=== PATIENT | female | born 1950 | race Caucasian/White ===

== ENCOUNTER 2016-12-13 07:42 | Day surgery (SDC) | payer MEDICARE, OTHER ==
[2016-12-10 14:30] LABS: BASOPHILS 0.7 %; BASOPHILS ABSOLUTE 0.04 10/3/uL (0.0-0.16); EOSINOPHILS 1.2 %; EOSINOPHILS ABSOLUTE 0.07 10/3/uL (0.0-0.53); HEMOGLOBIN 11.6 g/dL (12.0-16.0); IMMATURE GRANULOCYTES 0.2 %; IMMATURE GRANULOCYTES ABSOLUTE 0.01 10/3/uL (0.0-0.11); LYMPHOCYTES 29.6 %; LYMPHOCYTES ABSOLUTE 1.71 10/3/uL (0.67-4.30); MEAN CORPUS HGB CONC 31.9 g/dL (32.0-36.0); MEAN PLATELET VOLUME 11.7 fL (9.2-13.0); MONOCYTES 7.8 %; MONOCYTES ABSOLUTE 0.45 10/3/uL (0.21-1.20); NEUTROPHILS 60.5 %; NEUTROPHILS ABSOLUTE 3.49 10/3/uL (2.02-8.40); PLATELET COUNT 229 10/3/uL (150-400); RBC DISTRIBUTION WIDTH 14.1 % (12.0-16.0); WHITE BLOOD CELLS 5.8 10/3/uL (4.5-10.5)
[2016-12-10 14:32] LABS: HEMATOCRIT 36.4 % (36.0-48.0); MANUAL DIFF NO %
[2016-12-10 14:37] LABS: PFA (COL/EPI) 115 SEC (72-180)
[2016-12-10 14:48] LABS: INTERNATIONAL NORMAL RATI 1.1 UNITS (-); PARTIAL THROMBO TIME 27.3 SEC (22.5-37.2); PROTIME (NOT ORD) 14.1 SEC (12.0-14.5)
--- NOTE | ~2016-12-13 | OP ---
Record Of Operation [facility] [address] [place]. 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 POSTOPERATIVE DIAGNOSES: Surgical absence of the right breast and left breast deformity in terms of symmetry. PROCEDURES: Right tissue director community organization exchange for definitive silicone implant, fat grafting left open capsulotomy, and re-reconstruction with a 350 mL moderate plus profile smooth silicone implant and mastopexy. INDICATIONS AND FINDINGS OF THE PROCEDURE: This middle-aged female presents with a surgical absence of the right breast reconstruction with implant based technique. She had an augmentation mastopexy on the left years ago. She is appropriate for the above-described operative intervention. DETAILS OF THE PROCEDURE: The patient was brought to the operating room, and after being marked in the preoperative holding area, she was prepped and draped in the usual sterile fashion for the above-described procedure. First, our attention was turned to the abdomen, stab incisions were made, and then she was infiltrated with about 250 mL of wetting solution. Approximately 250 mL of fatty aspirate was then removed to a REVOLVE apparatus, this was treated appropriately, and then using a topographical map placed in the preoperative holding area, the right breast was injected with about 185 mL of fat. With this completed, she was re-cleansed, gloves were changed, and the incision was made in the inframammary crease on the right. Dissection was carried down to the level of the tissue director community organization. The tissue director community organization was ruptured and removed. A superior capsulotomy was carried out. She was irrigated, checked for hemostasis. An inferior drain was placed and a 555 MH implant was placed into the site. This was manipulated into an appropriate position, and the wounds were then closed with a deep layer of 3-0 Vicryl and multiple layers of Monocryl through to the intracuticular in the skin. Two medial and lateral dog ears from her [place] incision were then excised, checked for hemostasis, and closed with multiple layers of Monocryl. Our attention was then turned contralaterally for the capsulectomy, capsulotomy, and re-augmentation mastopexy. Using markings placed in the preoperative holding area, a vertical lenticel skin was then de-epithelialized around a 42 mm cookie cutter areolar complex. The infra-areolar breast parenchyma was then excised as a triangle to the level of the capsule and the triangle of capsule was removed. The old implant was removed with saline 200 mL. Popcorn capsulorrhaphy was carried out medially. Capsulotomy was carried superiorly and laterally. She was checked for hemostasis, irrigated with Hibiclens solution, a 350 mL moderate plus profile smooth silicone implant was then placed into the site, manipulated into an appropriate position, and then the capsule parenchymal layer was closed with 2-0 Vicryl, and then she was closed vertically with multiple layers of Vicryl and Monocryl over the elevated areolar complex. The horizontal incision was then undertaken. This was constructed as to have an areolar complex to inframammary crease distanced about 7.5 cm, this matched the appearance of the contralateral breast. This area Record Of Operation [facility] [id number] [place]. [address] NAME: SHIRA MCNEILL : 48 STATUS : REG [facility]#: [id number] AGE: 66 ADM/REG DATE : 12/13/16 MR#: [id number] REPORT SERV DATE: 12/13/16 DICTATED BY: TOM SALAMANCA DATE: 12/13/16 REPORT STATUS : Draft TRANSCRIBED BY: MODUbaldo DATE: 12/13/16 required skin and parenchymal excision through to the level of the underlying implant capsule. The inferior drain was placed into the implant capsule and then she was checked for hemostasis, and closed with stabilizing inframammary crease stitches of 2-0 Vicryl, and then multiple layers of Monocryl through to the intracuticular in the skin. Site for the areolar complex was chosen. This was de-epithelialized and the nipple-areolar complex was inset with multiple layers of 3-0 Monocryl. She was cleansed with peroxide. The drains were set to suction. Dry dressings were placed, and she was remanded to the recovery room in stable condition. All sponge and needle counts were correct. CHRISTY/RITESH Tom Salamanca M.D. / [id number] CC: Jeromy Caceres M.D.
[~2016-12-13 07:42] MED LIST: ADVIL PO; AT25 PO; FOLIC PO; IBU800 PO; K500 PO; MTX2.5 PO; NOLV10 PO; OS500+D PO; PCET PO; PERCOCET 7.5/321 TAB PO; PROBIOTIC PO; REMICADE IV; ULTRAM50 PO; VITAMIN D31000 UNIT PO; ZANTAC150 MG PO
[2017-02-20] MEDS ORDERED: OXYCOD PO (08:53)
[2017-02-20] MEDS ORDERED: C5 PO (08:53)
== END 2016-12-13 19:30 | disposition home or self-care (01) ==
LOC: SDC 07:42
PROVIDERS: Surgery Surgery of the Hand
PROC: 0HPT0NZ Removal of Tissue Expander from Right Breast, Open Approach (ICD-10-PCS; 2016-12-13)
PROC: 0HRT0JZ Replacement of Right Breast with Synthetic Substitute, Open Approach (ICD-10-PCS; 2016-12-13)
PROC: 0HNU0ZZ Release Left Breast, Open Approach (ICD-10-PCS; principal; 2016-12-13 09:30)
PROC: 0HQU0ZZ Repair Left Breast, Open Approach (ICD-10-PCS; 2016-12-13 09:30)
DX: N65.0 Deformity of reconstructed breast (principal); K21.9 Gastro-esophageal reflux disease without esophagitis; Z85.3 Personal history of malignant neoplasm of breast; M06.9 Rheumatoid arthritis, unspecified
CPT/HCPCS: 85025; 85576; 85610; 85730; 88305; 93005; A9270-GY; C1769; C1789; J0690; J1170; J1885; J2250; J2270; J2405; J3010